=== PATIENT | female | born 2000 | race Caucasian/White ===

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

== ENCOUNTER 2020-10-27 18:43 | Emergency (ER) | payer MEDICAID, OTHER ==
[~2020-10-27] VITALS: Ht 162.6 cm; Wt 59.1 kg
[2020-10-27 18:50] VITALS: BP 128/90
[2020-10-27] MEDS ORDERED: ALBU8HFA IH (19:14)
== END 2020-10-27 20:52 | disposition home or self-care (01) ==
LOC: EMS 18:43
DX: S60.452A Superficial foreign body of right middle finger, initial encounter (principal); X58.XXXA Exposure to other specified factors, initial encounter; Y93.89 Activity, other specified; Y92.89 Other specified places as the place of occurrence of the external cause; Y99.8 Other external cause status